=== PATIENT | female | born 2005 | race Caucasian/White ===

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

== ENCOUNTER 2025-03-28 14:07 | Emergency (ER) | payer OTHER, SELFPAY ==
--- NOTE | ~2025-03-28 | CT_ITS ---
EXAMINATION: CT abdomen pelvis w con DATE: 03/28/2025 17:21 INDICATION: generalized abdominal pain TECHNIQUE: Computed tomography (CT) of the abdomen and pelvis was performed with [address] Automated exposure control and iterative reconstruction technique were employed. The dose-length product was 1293.05 mGy-cm. COMPARISON: None. FINDINGS: Lower thorax: Unremarkable Liver: Normal. Biliary/Gallbladder: Gallbladder is normal. No bile duct dilation. Pancreas: No mass or duct dilation. Spleen: Normal. Adrenals:No mass. Kidneys: No suspicious mass, obstructing stone, or hydronephrosis. GI tract: No small or large bowel dilation. Appendix not visualized, likely status post appendectomy. Mesentery/Peritoneum: No ascites, mass, or free air. Retroperitoneum: No mass. Pelvis: Partially distended normal appearing urinary bladder. Normal uterus. Polycystic bilateral ova gregoria. Soft Tissues: Soft tissues and body wall unremarkable. Bones: No acute osseous finding. IMPRESSION: No acute abdominopelvic process detected. Reviewed, dictated and finalized at location K.
[2025-03-28 14:11] VITALS: BP 142/80; PULSE 97; RESP 16; TEMP 36.5; O2SAT 100
--- OUTSIDE RECORDS SUMMARY | 2025-03-28 15:22 | XMS_ITS | Clinical Summary ---
Author Organization [facility] [employer] [facility] Address [address] [place] [address] Care Team Providers Care Power Crane Operator Name Role Phone June Valles MD Primary Care Provider [phone]- [phone] Source Comments [facility] [employer],non-owned Affiliates and Associated Physician Practices is amultiple site organization consisting of ambulatory clinics and hospital sitesin [place], [place], [place] and [place]. This disclosure is being madepursuant to the Care Everywhere program and may not contain all information available regarding this patient. Last updated 18.[facility] [facility] Allergies No known active allergies Medications * This document contains information received from the source organization and may not represent a complete record from that organization. * Be aware that medications may not be up to date on this document. Alwaysverify current medications with the patient. amphetamine-de xtroamphetamin e XR 24hr (ADDERALL XR) 30 MG capsule Take 30 mg by mouth every morning Active amphetamine-de xtroamphetamin e XR 24hr (ADDERALL XR) 10 MG capsule Take 10 mg by mouth daily at 12 PM Active acetaminophen (TYLENOL) 325 MG tablet Take 1 tablet by mouth every 4 hours as needed for Fever or Pain Maximum allowable Acetaminophen amount = 4 Grams (4000 mg) / 24 hours. 50 tablet 9 Active ibuprofen (MOTRIN) 200 MG tablet Take 1-2 tablets by mouth every 6 hours as needed for Pain 100 tablet 9 Active Active Problems Problem Noted Date Diagnosed Date Acute appendicitis 10/23/2018 Social History Tobacco Use Types Packs/Day Years Used Date Smoking Tobacco: Never Smokeless Tobacco: Never Alcohol Use Standard Drinks/Week Comments No 0 (1 standard drink = 0.6 oz pur e alcohol) Comments Unknown Sex and Gender Information Value Date Recorded Sex Assigned at Not on file Legal Sex Female 5:43 AM SPORTS MARKETING SPECIALIST Gender Identity Not on file Sexual Orientation Not on file Last Filed Vital Signs Vital Sign Reading Time Taken Comments Blood Pressure 124/77 10/23/2018 5:53 PM SPORTS MARKETING SPECIALIST Pulse 100 10/23/2018 5:53 PM SPORTS MARKETING SPECIALIST Temperature 36.2 C (97.2 F) 10/23/2018 5:53 PM SPORTS MARKETING SPECIALIST Respiratory Rate 16 10/23/2018 5:53 PM SPORTS MARKETING SPECIALIST Oxygen Saturation 100% 10/23/2018 5:53 PM SPORTS MARKETING SPECIALIST Inhaled Oxygen Concentration 100% 10/23/2018 3 :50 PM SPORTS MARKETING SPECIALIST Weight 58.2 kg (128 lb 4.9 oz) 12/03/2018 12:58 PM SPORTS MARKETING SPECIALIST Height 159.7 cm (5' 2.89) 10/23/2018 11:[address] Body Mass Index - - Plan of Treatment Health Maintenance Due Date Last Done Comments HIV SCREENING 2019 HPV VACCINE (1 - 3-dose series) 2019 CHLAMYDIA/GONORRHEA SCREENING 2020 MENINGOCOCCAL (Group B) VACC INE SHARED DECISION-MAKING (1 of 2 - Standard) 2020 HEPATITIS C SCREENING 08/18/2022 DTAP/TDAP/TD VACCINES (1 - Tdap) 2023 HEPATITIS B VACCINE (1 of 3 - 19+ 3-dose series) 2023 COVID-19 VACCINE (1 - 2023-2 5 season) 2024 DEPRESSION SCREENING 10/20/2024 INFLUENZA VACCINE (Season Ended) 2025 ZOSTER VACCINE (1 of 2) 2054 HIB VACCINE Aged Out No longer eligi ble based on patient's age to complete this topic MENINGOCOCCAL GROUPS A/C/Y/W VACCINE Aged Out No longer eligible b ased on patient's age to complete this topic PNEUMOCOCCAL VACCINE Aged Out No long er eligible based on patient's age to complete this topic Insurance [facility] Member Subscriber Plan / Payer (Ef fective for All Dates) Name:Susan Fuxena R Relation to Subscriber:Self Name:SUSAN FUXENA Payer ID:Not on file Group ID:Not on file Type:Medicaid [place] Address: [address] [id number] MEDICAID - OUT OF STATE Advance Directives * Full Code (Latest Code Status on File) Date Activated Date Inactivated Comments 10/23/2018 12:58 PM 10/23/2018 9:59 PM Care Teams Power Crane Operator Relationship Specialty Start Date End Date June Valles MD [address] [facility] [address] [place], [place] [id number] PCP - General Pediatrics 10/23/18
--- OUTSIDE RECORDS SUMMARY | 2025-03-28 15:52 | XMS_ITS | Clinical Summary ---
Author Organization [facility] Address [address] [place] [address] Care Team Providers Care Data Entry Manager Name Role Phone June Valles MD Primary Care Provider [phone]- [phone] Source Comments [facility],non-owned Affiliates and Associated Physician Practices is amultiple site organization consisting of ambulatory clinics and hospital sitesin [place], [place], [place] and [place]. This disclosure is being madepursuant to the Care Everywhere program and may not contain all information available regarding this patient. Last updated 18.[facility] Allergies No known active allergies Medications * [...] on file Legal Sex Female 5:43 AM CASEWORK SPECIALIST Gender Identity Not on file Sexual Orientation Not on file Last Filed Vital Signs Vital Sign Reading Time Taken Comments Blood Pressure 124/77 10/23/2018 5:53 PM CASEWORK SPECIALIST Pulse 100 10/23/2018 5:53 PM CASEWORK SPECIALIST Temperature 36.2 C (97.2 F) 10/23/2018 5:53 PM CASEWORK SPECIALIST Respiratory Rate 16 10/23/2018 5:53 PM CASEWORK SPECIALIST Oxygen Saturation 100% 10/23/2018 5:53 PM CASEWORK SPECIALIST Inhaled Oxygen Concentration 100% 10/23/2018 3 :50 PM CASEWORK SPECIALIST Weight 58.2 kg (128 lb 4.9 oz) 12/03/2018 12:58 PM CASEWORK SPECIALIST Height 159.7 cm (5' 2.89) 10/23/2018 [...] patient's age to complete this topic Insurance [facility] Member Subscriber Plan / Payer (Ef fective for All Dates) Name:Susan Fuxena R Relation to Subscriber:Self Name:SUSAN FUXENA Payer ID:Not on file Group ID:Not on file Type:Medicaid [place] Address: [address] [id number] MEDICAID - OUT OF STATE Advance Directives * Full Code (Latest Code Status on File) Date Activated Date Inactivated Comments 10/23/2018 12:58 PM 10/23/2018 9:59 PM Care Teams Data Entry Manager Relationship Specialty Start Date End Date June Valles MD [address] [facility] [address] [place], [place] [id number] PCP - General Pediatrics 10/23/18
[2025-03-28] MEDS: SODIUM CHLORIDE 0.9% IV 1,000 ML 999 ML IV CONT (15:58)
[2025-03-28] MEDS: ONDANSETRON INJ 4 MG/2 ML VIAL IV PUSH (15:58)
--- NOTE | 2025-03-28 16:04 | ED_ITS ---
HPI - Abdominal Pain General Chief Complaint: Abdominal Pain Stated Complaint: abd pain for 3 months Time Seen by Provider: 03/28/25 14:33 History of Present Illness HPI narrative: Patient is a 19-year-old female who presents the ER with abdominal pain. She reports she drank alcohol last night and is hung over, but has been having generalized abdominal pain for the past 3 months. Patient reports the pain is worse this morning. She reports she was vomiting this morning with the last time being around 1:30 p.m.. Patient reports she has had random stabbing throughout her abdomen. She reports her last bowel movement was earlier today around 1:00 p.m. it was normal for her. She denies any medical history besides an appendectomy. Patient reports her last menstrual period was January 08, 2025. She denies any urinary symptoms, recent fevers, illicit drug use. Related Data Allergies Allergy/AdvReac Type Severity Reaction Status Date / Time No Known Allergies Allergy Mild Verified 05/27/23 21:44 Review of Systems 2 Review of Systems: All systems reviewed & are unremarkable except as noted in HPI and below Exam 2 Narrative: GENERAL: Well appearing, obese, non-toxic, in no acute distress. HEAD: Normocephalic, atraumatic. NECK: Supple. No adenopathy, no masses. RESPIRATORY: Airway patent, respirations nonlabored. Clear to auscultation bilaterally, no rales, rhonchi, wheezing. CARDIOVASCULAR: Regular rate and rhythm without murmurs, rubs, or gallops. Peripheral pulses 2+ and equal bilaterally. ABDOMINAL: Soft, tender all four quadrants with palpation, nondistended, no hepatosplenomegaly. Normoactive BS. MUSCULOSKELETAL: Moves all extremities. Strength/ROM intact without gross deformities. SKIN: Warm, dry, normal color. No rashes. NEURO: A&O X3. Speech clear. Cranial nerves II-XII intact. No ataxic movements. PSYCHIATRIC: Appropriate mood and affect. Normal interaction. Course Vital Signs Vital signs: Vital Signs Temperature 36.5 C 03/28/25 14:11 Pulse Rate 97 03/28/25 14:11 Respiratory Rate 16 03/28/25 14:11 Blood Pressure 142/80 H 03/28/25 14:11 Pulse Oximetry 100 03/28/25 14:11 Oxygen Delivery Room Air 03/28/25 14:11 Temperature 36.5 C 03/28/25 14:11 Pulse Rate 97 03/28/25 14:11 Respiratory Rate 16 03/28/25 14:11 Blood Pressure 142/80 H 03/28/25 14:11 Pulse Oximetry 100 03/28/25 14:11 Oxygen Delivery Room Air 03/28/25 14:11 MDM - Abdominal Pain MDM Narrative Medical decision making narrative: Patient is a 19-year-old female who presents the ER with abdominal pain. She reports she drank alcohol last night and is hung over, but has been having generalized abdominal pain for the past 3 months. Patient reports the pain is worse this morning. She reports she was vomiting this morning with the last time being around 1:30 p.m.. Patient reports she has had random stabbing throughout her abdomen. She reports her last bowel movement was earlier today around 1:00 p.m. it was normal for her. She denies any medical history besides an appendectomy. Patient reports her last menstrual period was January 08, 2025. She denies any urinary symptoms, recent fevers, illicit drug use. Labs Ordered: CBC, CMP, lipase, UA, beta hCG Imaging Ordered: CT abdomen pelvis Medications Ordered: 1 L normal saline IV bolus, Toradol IV, Zofran IV Results: Pt's CT scan indicates Lower thorax: Unremarkable Liver: Normal. Biliary/Gallbladder: Gallbladder is normal. No bile duct dilation. Pancreas: No mass or duct dilation. Spleen: Normal. Adrenals:No mass. Kidneys: No suspicious mass, obstructing stone, or hydronephrosis. GI tract: No small or large bowel dilation. Appendix not visualized, likely status post appendectomy. Mesentery/Peritoneum: No ascites, mass, or free air. Retroperitoneum: No mass. Pelvis: Partially distended normal appearing urinary bladder. Normal uterus. Polycystic bilateral ovaries. Soft Tissues: Soft tissues and body wall unremarkable. Bones: No acute osseous finding. Diagnosis: Abdominal pain, mild dehydration Patient Education/Shared MDM: Results of lab work and imaging shared with patient. She endorses improvement of symptoms following medication administration. Patient strongly advised to maintain hydration status upon discharge and follow-up with her PCP as soon as possible. She will be discharged home with a prescription for Bentyl and Zofran. Strict return precautions provided. Patient verbalized understanding and is in agreement with plan. Vital signs stable at time of discharge. All questions answered. Differential Diagnosis Differential diagnosis: Likely abdominal pain, constipation, gastroenteritis, small bowel obstruction and other (UTI, dehydration) Lab Data Attestation: I reviewed the patient's lab results. 03/28/25 16:00 03/28/25 16:00 Labs: Lab Results 03/28/25 03/28/25 Range/Units 16:00 16:04 WBC 9.7 (4.5-10.0) K/mm3 RBC 4.70 (4.2-5.4) M/mm3 Hgb 13.3 (12.0-15.0) g/dL Hct 42.5 (37.0-47.0) % MCV 90.4 (80-100) fl MCH 28.3 (26-34) pg MCHC 31.3 L (32-36) g/dl RDW 13.0 (11.5-14.5) % Plt Count 259 (150-375) k/mm3 MPV 9.0 (7.4-10.4) fl Immature Gran % (Auto) 0.3 (0-0.5) % Neut % (Auto) 66.0 (45.5-73.1) % Lymph % (Auto) 24.8 (18.3-44.2) % [place] % (Auto) 8.1 (2.6-8.5) % Eos % (Auto) 0.4 (0-4.4) % Baso % (Auto) 0.4 (0.2-1.2) % Lymph # (Auto) 2.39 (0.9-3.2) K/mm3 [place] # (Auto) 0.8 H (0.1-0.6) K/mm3 Eos # (Auto) 0.0 (0-0.3) K/mm3 Baso # (Auto) 0.0 (0.0-0.1) K/mm3 Abs Immat Gran (auto) 0.03 (0.00-0.031) K/mm3 Absolute Neuts (auto) 6.4 (1.3-6.7) K/mm3 Absolute Nucleated RBC 0.000 (0.0-0.012) K/mm3 Nucleated RBC % 0.0 (0.0-0.2) % Sodium 138 (137-145) mmol/L Potassium 3.9 (3.4-5.0) mmol/L Chloride 105 (98-107) mmol/L Carbon Dioxide 24 (22-30) mmol/L Anion Gap 9 (4-12) mmol/L BUN 12 (7-17) mg/dL Creatinine 0.65 L (0.7-1.0) mg/dL Estim Creat Clear Calc 141 ml/min Estimated GFR > 60 (59 - ) Glucose 95 (65-110) mg/dL Calcium 9.6 (8.4-10.2) mg/dL Total Bilirubin 0.5 (0.2-1.3) mg/dL AST 29 (14-36) U/L ALT 26 (6-35) U/L Alkaline Phosphatase 115 (38-126) U/L Total Protein 7.7 (6.3-8.2) g/dL Albumin 4.5 (3.5-5.1) g/dL Lipase 31 (23-300) U/L Beta HCG, Quant < 2.39 mIU/ML Urine Color Yellow (Yellow) Urine Appearance Cloudy H (Clear) Urine pH 7.5 (5.0-9.0) Ur Specific [place] 1.026 (1.001-1.035) Urine Protein Trace (Negative) mg/dL Urine Glucose (UA) Negative (Negative) mg/dL Urine Ketones Negative (Negative) mg/dL Ur Blood (Man) Negative (Negative) Urine Nitrate Negative (Negative) Urine Bilirubin Negative (Negative) Urine Urobilinogen 1.0 (<2.0) mg/dL Add Ur Microanalysis Reviewed Leukocyte Esterase Rfl 1+ H (Negative) MARK/UL Urine RBC 3-5 H (0-2) /hpf Urine WBC 0-5 (0-3) /hpf Ur Squamous Epith Cells Many H (Few) /hpf Urine Bacteria Rare /hpf Urine Casts 0-2 POC Urine HCG, Qual Negative (Negative) Imaging Data Attestation: I personally reviewed and interpreted this imaging study as follows: Radiologist's impression: ITS Impressions Abdomen/Pelvis CT 03/28/25 17:31 IMPRESSION: No acute abdominopelvic process detected. Discharge Plan Discharge Clinical Impression: Abdominal pain, Dehydration, mild Patient Disposition: Home Condition: Stable Instructions: Antibiotic Form, Abdominal Pain (ED) Additional Instructions: Please return to the ER with any worsening symptoms. Follow-up with primary care provider as soon as possible. Take all medications as prescribed. Patient Language: Belgian Prescriptions: New dicyclomine 20 mg tablet 20 mg PO BID Qty: 30 0RF ondansetron 4 mg tablet,disintegrating 4 mg PO Q8H PRN (Reason: Nausea And Vomiting) Qty: 20 0RF Follow-up/Referrals: Gerard,Kamini Abebe MD [Primary Care Provider] - Stand Alone Forms: Work/School Release IP Time of Disposition: 18:05
[2025-03-28 16:06] LABS: BEDSIDEPREGUCG Negative (Negative)
[2025-03-28 16:09] LABS: Basophils Percent Auto 0.4 % (0.2-1.2); Eosinophils Percent Auto 0.4 % (0-4.4); Hematocrit 42.5 % (37.0-47.0); Hemoglobin 13.3 g/dL (12.0-15.0); Immature Granulocyte Absolute 0.03 K/mm3 (0.00-0.031); Immature Granulocyte Percent A 0.3 % (0-0.5); Lymphocytes Absolute Auto 2.39 K/mm3 (0.9-3.2); Lymphocytes Percent Auto 24.8 % (18.3-44.2); Mean Corpuscular HGB Conc 31.3 g/dl (32-36); Mean Corpuscular Hemoglobin 28.3 pg (26-34); Mean Corpuscular Volume 90.4 fl (80-100); Monocytes Absolute Auto 0.8 K/mm3 (0.1-0.6); Monocytes Percent Auto 8.1 % (2.6-8.5); Neutrophils Absolute Auto 6.4 K/mm3 (1.3-6.7); Platelet Count Result 259 k/mm3 (150-375); White Blood Count 9.7 K/mm3 (4.5-10.0)
[2025-03-28 16:20] LABS: Alanine Aminotransferase 26 U/L (6-35); Albumin Level 4.5 g/dL (3.5-5.1); Alkaline Phosphatase 115 U/L (38-126); Anion Gap 9 mmol/L (4-12); Aspartate Amino Transferase 29 U/L (14-36); Bilirubin,Total 0.5 mg/dL (0.2-1.3); Blood Urea Nitrogen 12 mg/dL (7-17); Calcium 9.6 mg/dL (8.4-10.2); Carbon Dioxide 24 mmol/L (22-30); Chloride 105 mmol/L (98-107); Estimated CRCL calculation 141 ml/min; Estimated Glomerular Filt Rate > 60; Glucose 95 mg/dL (65-110); Lipase 31 U/L (23-300); Potassium 3.9 mmol/L (3.4-5.0); Sodium 138 mmol/L (137-145); Total Protein 7.7 g/dL (6.3-8.2)
[2025-03-28 16:28] LABS: Add Urine Microscopic? YES; Appearance Urine Cloudy (Clear); Bacteria Urine Rare /hpf; Bilirubin Urine Negative (Negative); Blood Urine Negative (Negative); Color Urine Yellow (Yellow); Glucose Urine UA Negative (Negative); Ketones Urine Negative (Negative); Leukocyte Esterase Ur 1+ LEU/UL (Negative); Need Manual Microscopic Reviewed; Nitrate Urine Negative (Negative); Non Pathogenic Casts 0-2; Protein Urine Trace mg/dL (Negative); Specific Grav Ur 1.026 (1.001-1.035); Squamous Epithelial Cell Urine Many /hpf (Few); WBC Urine 0-5 /hpf (0-3); pH Urine 7.5 (5.0-9.0)
[2025-03-28 16:36] LABS: Beta HCG Quantitative < 2.39 mIU/ML
--- NOTE | 2025-03-28 17:58 | PC.NURSE ---
TARGETEER Albina at bedside updating pt.
[2025-03-28] MEDS: KETOROLAC 15 MG/ML VIAL (*BKC) IV PUSH (18:02)
[2025-03-28 18:04] VITALS: BP 148/97; PULSE 99; RESP 14; O2SAT 100
== END 2025-03-28 18:21 | disposition home or self-care (01) ==
PROVIDERS: Emergency Provider Registered Nurse; PCP Obstetrics & Gynecology
DX: R10.84 Generalized abdominal pain (principal); E86.0 Dehydration
CPT/HCPCS: 36415; 74177; 80053; 81001; 81025; 83690; 84702; 85025; 96361; 96374; 96375; 99284; J1885; J2405; J7030; Q9967

== ENCOUNTER 2025-05-11 15:32 | Emergency (ER) | payer OTHER, SELFPAY ==
--- NOTE | ~2025-05-11 | XR_ITS ---
EXAMINATION: XR chest 1V portable DATE: 05/11/2025 22:30 INDICATION: Central chest pain TECHNIQUE: frontal view of the chest was obtained. COMPARISON: None FINDINGS: The lungs are clear with no focal airspace opacities, pulmonary edema, pleural effusion or pneumothor ax. The cardiomediastinal silhouette is normal. Visualized bones and soft tissues are unremarkable. IMPRESSION: 1. No acute cardiopulmonary disease. Reviewed, dictated and finalized at location A.
--- NOTE | ~2025-05-11 | US_ITS ---
EXAMINATION: US OB <=14 wk fetus w TV DATE: 05/11/2025 17:45 INDICATION: Vaginal bleeding during first trimester TECHNIQUE: Real-time pelvic ultrasound utilizing both a transvaginal and transabdominal probe was pe rformed. The interpreting radiologist was not present for the study. COMPARISON: None. FINDINGS: The uterus measures 7.3 x 4.3 x 4.2 cm. Endometrial complex measures approximately 10 mm in thickness . No evident intrauterine gestational sac. The right ovary measures 3.5 x 2.7 x 2.4 cm. 1.6 cm anechoic cyst/follicle at the periphery of the ri ght ovary. The left ovary measures 2.5 x 1.8 x 2.0 cm. Vascular flow identified with arterial wavefor ms in both ovaries on color Doppler. There is small amount of anechoic free fluid nabothian left and right adnexa. No other abnormal adnexal masses identified. IMPRESSION: 1. No evident intrauterine gestational sac for which differential would include early , fail ed or ectopic . Small amount of anechoic free fluid at the left and right adnexa b ut with no abnormal adnexal masses identified to elevate suspicion for ectopic . Recommend f ollow-up with serial beta-hCG levels with repeat ultrasound imaging as clinically indicated. Reviewed, dictated and finalized at location A. IMPRESSION: 1. No evident intrauterine gestational sac for which differential would include early , failed or ectopic . Small amount of anecho ic free fluid at the left and right adnexa but with no abnormal adnexal masses identified to elevate suspicion for ectopic . Recommend follow-up with serial beta-hCG levels with repeat ultrasound imaging as clinically indicated.
[2025-05-11 15:33] VITALS: BP 136/66; PULSE 98; RESP 16; TEMP 36.6; O2SAT 100
--- OUTSIDE RECORDS SUMMARY | 2025-05-11 15:34 | XMS_ITS | Clinical Summary ---
Author Organization [facility] [employer] Address [address] [place] [address] Care Team Providers Care Toy Maker Name Role Phone June Valles MD Primary Care Provider [phone]- [phone] Source Comments [facility],non-owned Affiliates and Associated Physician Practices is amultiple site organization consisting of ambulatory clinics and hospital sitesin [place], [place], [place] and [place]. This disclosure is being madepursuant to the Care Everywhere program and may not contain all information available regarding this patient. Last updated 18.[facility] Allergies No known active allergies Medications * [...] on file Legal Sex Female 5:43 AM COUNTRY MANAGER Gender Identity Not on file Sexual Orientation Not on file Last Filed Vital Signs Vital Sign Reading Time Taken Comments Blood Pressure 124/77 10/23/2018 5:53 PM COUNTRY MANAGER Pulse 100 10/23/2018 5:53 PM COUNTRY MANAGER Temperature 36.2 C (97.2 F) 10/23/2018 5:53 PM COUNTRY MANAGER Respiratory Rate 16 10/23/2018 5:53 PM COUNTRY MANAGER Oxygen Saturation 100% 10/23/2018 5:53 PM COUNTRY MANAGER Inhaled Oxygen Concentration 100% 10/23/2018 3 :50 PM COUNTRY MANAGER Weight 58.2 kg (128 lb 4.9 oz) 12/03/2018 12:58 PM COUNTRY MANAGER Height 159.7 cm (5' 2.89) 10/23/2018 11:10 [...] season) 2024 DEPRESSION SCREENING 10/20/2024 INFLUENZA VACCINE (#1) 2025 ZOSTER VACCINE (1 of 2) 2054 HIB VACCINE Aged Out No longer eligi ble based on patient's age to complete this topic MENINGOCOCCAL GROUPS A/C/Y/W VACCINE Aged Out No longer eligible b ased on patient's age to complete this topic PNEUMOCOCCAL VACCINE Aged Out No long er eligible based on patient's age to complete this topic Insurance [facility] Member Subscriber Plan / Payer (Ef fective for All Dates) Name:Susan Fuxena R Relation to Subscriber:Self Name:SUSAN FUXENA Payer ID:Not on file Group ID:Not on file Type:Medicaid [place] Address: [address] [id number] MEDICAID - OUT OF STATE Advance Directives * Full Code (Latest Code Status on File) Date Activated Date Inactivated Comments 10/23/2018 12:58 PM 10/23/2018 9:59 PM Care Teams Toy Maker Relationship Specialty Start Date End Date June Valles MD [address] [facility] [address] [place], [place] [id number] PCP - General Pediatrics 10/23/18
--- NOTE | 2025-05-11 15:36 | ECG_ITS ---
Test Date: 2025-05-11 15:40:48 Measurements Intervals [place] Rate: 92 P: 0 SD: 130 QRS: 12 QRSD: 81 T: 5 QT: 332 QTc: 412 Interpretive Statements SINUS RHYTHM NONSPECIFIC T-WAVE ABNORMALITY ABNORMAL ECG No previous ECG available for comparison Electronically Signed On 05-11-2025 16:48:24 CDT by Anton Heck M.D.
[2025-05-11 17:03] LABS: Hematocrit 39.5 % (37.0-47.0); Hemoglobin 12.7 g/dL (12.0-15.0); Immature Granulocyte Percent A 0.6 % (0-0.5); Lymphocytes Absolute Auto 1.71 K/mm3 (0.9-3.2); Mean Corpuscular HGB Conc 32.2 g/dl (32-36); Mean Corpuscular Hemoglobin 28.5 pg (26-34); Mean Corpuscular Volume 88.6 fl (80-100); Nucleated Red Blood Cells Absolute Auto 0.000 K/mm3 (0.0-0.012); Nucleated Red Blood Cells Perc 0.0 % (0.0-0.2); Platelet Count Result 243 k/mm3 (150-375); Red Blood Count 4.46 M/mm3 (4.2-5.4); White Blood Count 8.5 K/mm3 (4.5-10.0)
[2025-05-11 17:33] LABS: Alanine Aminotransferase 31 U/L (6-35); Albumin Level 4.1 g/dL (3.5-5.1); Alkaline Phosphatase 82 U/L (38-126); Anion Gap 7 mmol/L (4-12); Aspartate Amino Transferase 29 U/L (14-36); Bilirubin,Total 0.4 mg/dL (0.2-1.3); Blood Urea Nitrogen 7 mg/dL (7-17); Calcium 9.5 mg/dL (8.4-10.2); Carbon Dioxide 24 mmol/L (22-30); Chloride 105 mmol/L (98-107); Estimated Glomerular Filt Rate > 60; Glucose 110 mg/dL (65-110); Potassium 4.1 mmol/L (3.4-5.0); Sodium 136 mmol/L (137-145); Total Protein 7.2 g/dL (6.3-8.2)
[2025-05-11 17:45] LABS: Beta HCG Quantitative 1240.80 mIU/ML
[2025-05-11 20:01] VITALS: BP 119/79; PULSE 85; RESP 14; O2SAT 98
[2025-05-11 20:19] LABS: Add Urine Microscopic? YES; Appearance Urine Cloudy (Clear); Glucose Urine UA Negative (Negative); Leukocyte Esterase Ur 1+ LEU/UL (Negative); Need Manual Microscopic Reviewed; Nitrate Urine Negative (Negative); Non Pathogenic Casts 0-2; Specific Grav Ur 1.023 (1.001-1.035)
--- NOTE | 2025-05-11 22:15 | ED_ITS ---
HPI - Abdominal Pain General Chief Complaint: Abdominal Pain Stated Complaint: abd pain, 5 weeks Time Seen by Provider: 05/11/25 21:51 History of Present Illness HPI narrative: 19-year-old female who is reportedly 5 weeks , A1, LMP 04/10/2025 presents to the emergency department for abdominal pain in . Patient states 5 days ago she had an at home positive test. [facility] and was advised to come [facility] that she has been having lower abdominal pain and cramping. She states she has intermittent lower abdominal cramping for the past couple of days. She denies any aggravating or alleviating factors, vaginal bleeding, dysuria or hematuria. She is endorsing a clear and ?fishy? vaginal discharge and is expressing desire for STI testing. She also is endorsing intermittent chest pain for the past few days. She states she is uncertain if the pain is breast pain from her or acid reflux. She cannot identify any aggravating or alleviating factors. She denies cough, shortness of breath, hemoptysis, history of VTE, recent surgeries or hospitalizations, recent long travel. She is not established with an valve inserter. Related Data Allergies Allergy/AdvReac Type Severity Reaction Status Date / Time No Known Allergies Allergy Mild Verified 05/27/23 21:44 Review of Systems 2 Review of Systems: All systems reviewed & are unremarkable except as noted in HPI and below Exam 2 Narrative: GENERAL: Well-appearing, well-nourished, and in no acute distress. HEAD: Normocephalic, atraumatic. EYES: EOMI. ENT: Nares clear, no rhinorrhea or epistaxis. Mucous membranes moist. NECK: Supple. CHEST: Clear to auscultation. No respiratory distress. HEART: Regular rate and rhythm. No murmur heard. Normal peripheral pulses. ABDOMEN: Soft, nontender, nondistended, normal active bowel sounds. No rebound, guarding or rigidity. No CVA tenderness. : Chaperoned by CINDY Milian: Normal external genitalia, physiologic vaginal discharge, closed cervical os, no bleeding, no adnexal masses or tenderness, no CMT EXTREMITIES: Normal range of motion. No edema. SKIN: Warm, dry, no rash. NEURO: No focal deficits. Alert and oriented x3 Course Vital Signs Vital signs: Vital Signs Temperature 97.9 F 05/11/25 15:33 Pulse Rate 98 05/11/25 15:33 Respiratory Rate 16 05/11/25 15:33 Blood Pressure 136/66 05/11/25 15:33 Pulse Oximetry 100 05/11/25 15:33 Oxygen Delivery Room Air 05/11/25 15:33 Temperature 97.9 F 05/11/25 15:33 Pulse Rate 85 05/11/25 20:01 Respiratory Rate 14 05/11/25 20:01 Blood Pressure 119/79 05/11/25 20:01 Pulse Oximetry 98 05/11/25 20:01 Oxygen Delivery Room Air 05/11/25 15:33 MDM - Abdominal Pain MDM Narrative Medical decision making narrative: 19-year-old female who is A1, currently 5 weeks presents to the emergency department for intermittent abdominal cramping and intermittent chest pain and over the past 3 days. See HPI for further history. Triage vitals are stable. Patient is afebrile and nontoxic appearing and resting comfortably in exam bed. Exam is notable for the above. I did have discussion with the patient regarding risks and benefits of radiation in including obtaining chest x-ray for reported chest pain. Patient would like to proceed with chest x-ray and understands the risks. CBC without leukocytosis or anemia. Chemistries are unremarkable. Beta hCG is 1240.8. Urinalysis with 1+ leuk esterase, 1+ bacteria, many squamous cells and trace ketones, no white blood cells. GC, chlamydia, Trichomonas and BV tests are pending. US OB <14 weeks IMPRESSION: 1. No evident intrauterine gestational sac for which differential would include early , failed or ectopic . Small amount of anechoic free fluid at the left and right adnexa but with no abnormal adnexal masses identified to elevate suspicion for ectopic . Recommend follow-up with serial beta-hCG levels with repeat ultrasound imaging as clinically indicated. Patient's EKG shows normal sinus rhythm with a rate of 92 bpm, normal QRS duration, normal QTC, nonspecific T-wave abnormality, no ST elevations or depressions. Troponin is undetectable. D-dimer within normal limits, wells score is low risk. Lipase is within normal limits. Chest pain is atypical in nature. Patient updated on results. On re-evaluation she remains resting comfortably in exam bed, smiling and conversational. Abdomen remains soft and nontender. She is requesting empiric treatment for STIs. I discussed today's workup and findings with OBGYN on-call, Dr. Varner, who agrees to IM Rocephin, azithromycin and Flagyl for STI treatment, Keflex for asymptomatic bacteriuria in . Advises pt safe for d/c home with repeat hCG on Friday and would like the patient to call his office to schedule appointment for Friday afternoon. This was relayed to the patient. She was given strict ED return precautions. She is agreeable with the plan verbalized understanding. Discharged in stable condition Lab Data 05/11/25 16:56 05/11/25 16:56 Labs: Lab Results 05/11/25 05/11/25 05/11/25 Range/Units 16:56 19:57 22:53 WBC 8.5 (4.5-10.0) K/mm3 RBC 4.46 (4.2-5.4) M/mm3 Hgb 12.7 (12.0-15.0) g/dL Hct 39.5 (37.0-47.0) % MCV 88.6 (80-100) fl MCH 28.5 (26-34) pg MCHC 32.2 (32-36) g/dl RDW 13.1 (11.5-14.5) % Plt Count 243 (150-375) k/mm3 MPV 8.7 (7.4-10.4) fl Immature Gran % (Auto) 0.6 H (0-0.5) % Neut % (Auto) 69.9 (45.5-73.1) % Lymph % (Auto) 20.2 (18.3-44.2) % Jennings % (Auto) 7.4 (2.6-8.5) % Eos % (Auto) 1.5 (0-4.4) % Baso % (Auto) 0.4 (0.2-1.2) % Lymph # (Auto) 1.71 (0.9-3.2) K/mm3 Jennings # (Auto) 0.6 (0.1-0.6) K/mm3 Eos # (Auto) 0.1 (0-0.3) K/mm3 Baso # (Auto) 0.0 (0.0-0.1) K/mm3 Abs Immat Gran (auto) 0.05 H (0.00-0.031) K/mm3 Absolute Neuts (auto) 5.9 (1.3-6.7) K/mm3 Absolute Nucleated RBC 0.000 (0.0-0.012) K/mm3 Nucleated RBC % 0.0 (0.0-0.2) % PT 13.4 (11.1-14.7) Seconds INR 1.0 APTT 24.1 (22.3-36.8) Seconds D-Dimer 0.27 (<0.48) ug/mL Sodium 136 L (137-145) mmol/L Potassium 4.1 (3.4-5.0) mmol/L Chloride 105 (98-107) mmol/L Carbon Dioxide 24 (22-30) mmol/L Anion Gap 7 (4-12) mmol/L BUN 7 D (7-17) mg/dL Creatinine 0.66 L (0.7-1.0) mg/dL Estim Creat Clear Calc Not Reportable Estimated GFR > 60 (59 - ) Glucose 110 (65-110) mg/dL Calcium 9.5 (8.4-10.2) mg/dL Total Bilirubin 0.4 (0.2-1.3) mg/dL AST 29 (14-36) U/L ALT 31 (6-35) U/L Alkaline Phosphatase 82 (38-126) U/L Troponin I < 0.012 (0.000-0.034) ng/mL NT-Pro-B Natriuret Pep < 20 (19.9-100) pg/mL Total Protein 7.2 (6.3-8.2) g/dL Albumin 4.1 (3.5-5.1) g/dL Lipase 57 (23-300) U/L Beta HCG, Quant 1240.80 mIU/ML Urine Color Yellow (Yellow) Urine Appearance Cloudy H (Clear) Urine pH 5.5 (5.0-9.0) Ur Specific Agness 1.023 (1.001-1.035) Urine Protein Negative (Negative) mg/dL Urine Glucose (UA) Negative (Negative) mg/dL Urine Ketones Trace H (Negative) mg/dL Ur Blood (Man) Negative (Negative) Urine Nitrate Negative (Negative) Urine Bilirubin Negative (Negative) Urine Urobilinogen 0.2 (<2.0) mg/dL Add Ur Microanalysis Reviewed Leukocyte Esterase Rfl 1+ H (Negative) MARK/UL Urine RBC 0-2 (0-2) /hpf Urine WBC 0-5 (0-3) /hpf Ur Squamous Epith Cells Many H (Few) /hpf Urine Bacteria 1+ H /hpf Urine Casts 0-2 Urine Mucus Present /lpf C. trachomatis (PCR) Not detected (NOT DETECTE) N. gonorrhoeae (PCR) Not detected (NOT DETECTE) T. vaginalis (PCR) Not detected (NOT DETECTE) Bact Vaginosis Panel 05/11/25 Range/Units 22:58 WBC (4.5-10.0) K/mm3 RBC (4.2-5.4) M/mm3 Hgb (12.0-15.0) g/dL Hct (37.0-47.0) % MCV (80-100) fl MCH (26-34) pg MCHC (32-36) g/dl RDW (11.5-14.5) % Plt Count (150-375) k/mm3 MPV (7.4-10.4) fl Immature Gran % (Auto) (0-0.5) % Neut % (Auto) (45.5-73.1) % Lymph % (Auto) (18.3-44.2) % Jennings % (Auto) (2.6-8.5) % Eos % (Auto) (0-4.4) % Baso % (Auto) (0.2-1.2) % Lymph # (Auto) (0.9-3.2) K/mm3 Jennings # (Auto) (0.1-0.6) K/mm3 Eos # (Auto) (0-0.3) K/mm3 Baso # (Auto) (0.0-0.1) K/mm3 Abs Immat Gran (auto) (0.00-0.031) K/mm3 Absolute Neuts (auto) (1.3-6.7) K/mm3 Absolute Nucleated RBC (0.0-0.012) K/mm3 Nucleated RBC % (0.0-0.2) % PT (11.1-14.7) Seconds INR APTT (22.3-36.8) Seconds D-Dimer (<0.48) ug/mL Sodium (137-145) mmol/L Potassium (3.4-5.0) mmol/L Chloride (98-107) mmol/L Carbon Dioxide (22-30) mmol/L Anion Gap (4-12) mmol/L BUN (7-17) mg/dL Creatinine (0.7-1.0) mg/dL Estim Creat Clear Calc Estimated GFR (59 - ) Glucose (65-110) mg/dL Calcium (8.4-10.2) mg/dL Total Bilirubin (0.2-1.3) mg/dL AST (14-36) U/L ALT (6-35) U/L Alkaline Phosphatase (38-126) U/L Troponin I (0.000-0.034) ng/mL NT-Pro-B Natriuret Pep (19.9-100) pg/mL Total Protein (6.3-8.2) g/dL Albumin (3.5-5.1) g/dL Lipase (23-300) U/L Beta HCG, Quant mIU/ML Urine Color (Yellow) Urine Appearance (Clear) Urine pH (5.0-9.0) Ur Specific Agness (1.001-1.035) Urine Protein (Negative) mg/dL Urine Glucose (UA) (Negative) mg/dL Urine Ketones (Negative) mg/dL Ur Blood (Man) (Negative) Urine Nitrate (Negative) Urine Bilirubin (Negative) Urine Urobilinogen (<2.0) mg/dL Add Ur Microanalysis Leukocyte Esterase Rfl (Negative) MARK/UL Urine RBC (0-2) /hpf Urine WBC (0-3) /hpf Ur Squamous Epith Cells (Few) /hpf Urine Bacteria /hpf Urine Casts Urine Mucus /lpf C. trachomatis (PCR) (NOT DETECTE) N. gonorrhoeae (PCR) (NOT DETECTE) T. vaginalis (PCR) (NOT DETECTE) Bact Vaginosis Panel Cancelled Imaging Data Radiologist's impression: ITS Impressions Obstetrics Ultrasound 05/11/25 17:49 IMPRESSION: 1. No evident intrauterine gestational sac for which differential would include early , failed or ectopic . Small amount of anechoic free fluid at the left and right adnexa but with no abnormal adnexal masses identified to elevate suspicion for ectopic . Recommend follow-up with serial beta-hCG levels with repeat ultrasound imaging as clinically indicated. Chest X-Ray 05/11/25 22:37 IMPRESSION: 1. No acute cardiopulmonary disease. Discharge Plan Discharge Clinical Impression: Abdominal pain affecting , Atypical chest pain, Asymptomatic bacteriuria during , Screening examination for STI Patient Disposition: Home Condition: Stable Instructions: Antibiotic Form, Chest Pain (DC), Abdominal Pain in (ED) Additional Instructions: Your evaluated in the emergency department for abdominal pain and chest pain and . Your beta hCG level is 1240.80. Please report to the [facility] lab Friday to have a repeat beta hCG level as we would expect this to increase if you have a viable . You are also requesting to be empirically treated for gonorrhea, chlamydia and Trichomonas. Additionally your found have some bacteria in your urine and are being treated for a possible UTI. Please take the antibiotics as directed. Make sure all partners are tested and treated appropriately prior to engaging sexual contact. Please call the [facility] office, Dr. Varner, and schedule an appointment for Friday afternoon for close follow-up. Return to the emergency department if you develop worsening abdominal pain, lightheadedness or loss of consciousness, worsening or changing chest pain or shortness of breath, fever, your unable to tolerate food or fluids, or other concerning symptoms. Patient Language: Solomon Islander Prescriptions: New metronidazole 500 mg tablet 500 mg PO Q12H Qty: 14 0RF acetaminophen 500 mg capsule 500 mg PO Q6H PRN (Reason: pain) Qty: 14 0RF metoclopramide HCl 10 mg tablet 10 mg PO Q6H PRN (Reason: nausea and vomiting) Qty: 14 0RF cephalexin 500 mg capsule 500 mg PO Q6H Qty: 28 0RF No Action dicyclomine 20 mg tablet 20 mg PO BID Qty: 30 0RF ondansetron 4 mg tablet,disintegrating 4 mg PO Q8H PRN (Reason: Nausea And Vomiting) Qty: 20 0RF dicyclomine 20 mg tablet 20 mg PO BID Qty: 30 0RF ondansetron 4 mg tablet,disintegrating 4 mg PO Q8H Qty: 30 0RF Other Ambulatory Orders: Beta HCG Quantitative (Routine) Timeframe: 20250513 Location: Determined by Patient Ordered By: Mis Aquino Follow-up/Referrals: David Varner MD [Physician] - Gerard,Kamini Abebe MD [Primary Care Provider] -
--- OUTSIDE RECORDS SUMMARY | 2025-05-11 22:27 | XMS_ITS | Clinical Summary ---
Author Organization [facility] Address [address] [place] [address] Care Team Providers Care Sales And Service Engineer Name Role Phone June Valles MD Primary Care Provider [phone] Source Comments [facility],non-owned Affiliates and Associated Physician Practices is amultiple site organization consisting of ambulatory clinics and hospital sitesin [place], [place], [place] and [place]. This disclosure is being madepursuant to the Care Everywhere program and may not contain all information available regarding this patient. Last updated 18.[facility] Allergies No known active allergies Medications * [...] on file Legal Sex Female 5:43 AM SOLUTIONS DELIVERY CONSULTANT Gender Identity Not on file Sexual Orientation Not on file Last Filed Vital Signs Vital Sign Reading Time Taken Comments Blood Pressure 124/77 10/23/2018 5:53 PM SOLUTIONS DELIVERY CONSULTANT Pulse 100 10/23/2018 5:53 PM SOLUTIONS DELIVERY CONSULTANT Temperature 36.2 C (97.2 F) 10/23/2018 5:53 PM SOLUTIONS DELIVERY CONSULTANT Respiratory Rate 16 10/23/2018 5:53 PM SOLUTIONS DELIVERY CONSULTANT Oxygen Saturation 100% 10/23/2018 5:53 PM SOLUTIONS DELIVERY CONSULTANT Inhaled Oxygen Concentration 100% 10/23/2018 3 :50 PM SOLUTIONS DELIVERY CONSULTANT Weight 58.2 kg (128 lb 4.9 oz) 12/03/2018 12:58 PM SOLUTIONS DELIVERY CONSULTANT Height 159.7 cm (5' 2.89) 10/23/2018 11:10 [...] patient's age to complete this topic Insurance [facility] Member Subscriber Plan / Payer (Ef fective for All Dates) Name:Susan Fuxena R Relation to Subscriber:Self Name:SUSAN FUXENA Payer ID:Not on file Group ID:Not on file Type:Medicaid [place] Address: [address] [id number] MEDICAID - OUT OF STATE Advance Directives * Full Code (Latest Code Status on File) Date Activated Date Inactivated Comments 10/23/2018 12:58 PM 10/23/2018 9:59 PM Care Teams Sales And Service Engineer Relationship Specialty Start Date End Date June Valles MD [address] [place], [place] [id number] PCP - General Pediatrics 10/23/18
[2025-05-11 22:57] LABS: Lipase 57 U/L (23-300)
[2025-05-11 23:05] LABS: NT Pro B Type Natriuretic Pept < 20 pg/mL (19.9-100); Troponin I < 0.012 ng/mL (0.000-0.034)
[2025-05-11 23:19] LABS: INR 1.0; Prothrombin Time 13.4 Seconds (11.1-14.7)
[2025-05-11 23:20] LABS: Partial Thromboplastin Time 24.1 Seconds (22.3-36.8)
[2025-05-11 23:57] LABS: Trichomonas Vag PCR NOT DETECTED (NOT DETECTE)
[2025-05-12] MEDS: AZITHROMYCIN 500 MG TABLET 1000 MG PO (00:18)
[2025-05-12] MEDS: cefTRIAXone 1 GM VIAL 0.5 GM IM (00:18)
[2025-05-12] MEDS: LIDOCAINE 1% LOCAL INJ 10 ML VIAL (00:19)
== END 2025-05-12 00:21 | disposition home or self-care (01) ==
PROVIDERS: Registered Nurse; Emergency Provider Physician Assistant; PCP Obstetrics & Gynecology
DX: O26.891 Other specified pregnancy related conditions, first trimester (principal); R10.9 Unspecified abdominal pain; R82.71 Bacteriuria; R07.89 Other chest pain; Z11.3 Encounter for screening for infections with a predominantly sexual mode of transmission; R94.31 Abnormal electrocardiogram [ECG] [EKG]; Z3A.01 Less than 8 weeks gestation of pregnancy
CPT/HCPCS: 36415; 71045; 76801; 76817; 80053; 81001; 83690; 83880; 84484; 84702; 85025; 85380; 85610; 85730; 87491; 87591; 87661; 87798; 93005; 96372; 99284; A9270; J0696; J2003

== ENCOUNTER 2025-07-28 14:41 | Emergency (ER) | payer OTHER, SELFPAY ==
--- NOTE | ~2025-07-28 | US_ITS ---
EXAMINATION: US abdomen limited DATE: 07/28/2025 18:27 INDICATION: Abdominal cramping and right upper quadrant abdominal pain TECHNIQUE: Multiple grayscale and Doppler ultrasound images of the abdomen were obtained. COMPARISON: CT dated 03/20/2025 FINDINGS: The pancreatic head and body are normal in appearance. The pancreatic tail is not visualized. Liver has normal echogenicity and contour, with a smooth surface. No liver lesion identified. No intrahepatic biliary duct dilation suspected. Portal venous flow was seen in the hepatopetal, normal direction and has normal Doppler waveform. The visualized proximal inferior vena cava is normal. Gallbladder is decompressed which limits evaluation. No evident cholelithiasis. Common bile duct measures to have 3 mm in maximal diameter which is normal. Sonographic Moody sign was reported as negative by the sono grapher.Visualized portion of the right kidney demonstrates normal contour and echogenicity with no hydronephrosis. IMPRESSION: 1. Normal right upper quadrant ultrasound with decompressed gallbladder. Reviewed, dictated and finalized at location A.
--- NOTE | ~2025-07-28 | US_ITS ---
EXAMINATION: US OB limited DATE: 07/28/2025 18:27 INDICATION: Abdominal cramping at the 15th week of TECHNIQUE: Real-time ultrasound of the pelvis was performed. The interpreting radiologist was not present for the study. COMPARISON: None. FINDINGS: There is a single living fetus in vertex presentation. The placenta is posterior with caudal margin 3.7 cm from the internal cervical os. heart rate is 150 beats per minute (bpm). The amniotic fluid volume is subjectively normal. IMPRESSION: 1. Single living fetus in vertex presentation with heart rate of 150 bpm. 2. Normal posterior placenta with caudal margin 3.7 cm from the internal cervical os. Reviewed, dictated and finalized at location A. IMPRESSION: 1. Single living fetus in vertex presentation with heart rate of 150 bpm . 2. Normal posterior placenta with caudal margin 3.7 cm from the internal cervic al os.
[2025-07-28 14:54] VITALS: BP 136/78; PULSE 99; RESP 18; TEMP 36.7; O2SAT 99
--- NOTE | 2025-07-28 17:38 | ED.PREGNANCY ---
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 She reports she is approximately 15 weeks . Patient endorses some abnormal vaginal discharge and acute back pain. Patient reports the pain has been present for approximately 3 days. She reports she has had stabbing pain throughout her lower abdomen. She reports her last bowel movement was earlier today and it was normal for her. She denies any medical history besides an appendectomy. Patient reports her last menstrual period was in March 2025 She denies any urinary symptoms, recent fevers, or illicit drug use. Related Data Allergies Allergy/AdvReac Type Severity Reaction Status Date / Time No Known Allergies Allergy Mild Verified 07/28/25 14:42 Review of Systems Review of Systems: All systems reviewed & are unremarkable except as noted in HPI and below Exam Narrative: GENERAL: Well appearing, obese, non-toxic, in no acute distress. HEAD: Normocephalic, atraumatic. NECK: Supple. No adenopathy, no masses. RESPIRATORY: Airway patent, respirations nonlabored. Clear to auscultation bilaterally, no rales, rhonchi, wheezing. CARDIOVASCULAR: Regular rate and rhythm without murmurs, rubs, or gallops. Peripheral pulses 2+ and equal bilaterally. ABDOMINAL: Soft, bilateral lower quadrant tenderness, + RUQ pain with palpation, nondistended, no hepatosplenomegaly. Normoactive BS. MUSCULOSKELETAL: Moves all extremities. Strength/ROM intact without gross deformities. SKIN: Warm, dry, normal color. No rashes. NEURO: A&O X3. Speech clear. Cranial nerves II-XII intact. No ataxic movements. PSYCHIATRIC: Appropriate mood and affect. Normal interaction. Course Vital Signs Vital signs: Vital Signs Temperature 36.7 C 07/28/25 14:54 Pulse Rate 99 07/28/25 14:54 Respiratory Rate 18 07/28/25 14:54 Blood Pressure 136/78 07/28/25 14:54 Pulse Oximetry 99 07/28/25 14:54 Oxygen Delivery Room Air 07/28/25 14:54 Temperature 36.7 C 07/28/25 14:54 Pulse Rate 93 07/28/25 18:54 Respiratory Rate 18 07/28/25 18:54 Blood Pressure 102/66 07/28/25 18:54 Pulse Oximetry 100 07/28/25 18:54 Oxygen Delivery Room Air 07/28/25 14:54 MDM - OB/Uterine Contractions MDM Narrative Medical decision making narrative: Patient is a 19-year-old female who presents to the ER with lower and RUQ abdominal pain. She reports she is approximately 15 weeks . Patient endorses some abnormal malodorous vaginal discharge and acute back pain. Patient reports the pain has been present for approximately 3 days. She reports she has had stabbing pain throughout her lower abdomen. She reports her last bowel movement was earlier today and it was normal for her. She denies any medical history besides an appendectomy. Patient reports her last menstrual period was in March 2025 She denies any urinary symptoms, recent fevers, or illicit drug use. Labs Ordered: CBC, CMP, UA, beta hCG, GC chlamydia, Trichomonas, PTT, INR Imaging Ordered: Ultrasound OB limited, ultrasound abdominal limited Medications Ordered: None necessary Results: Patient's blood work results came back with no acute abnormalities. Diagnosis: Bacterial vaginosis Patient Education/Shared MDM: Results of lab work and imaging shared with patient. She will be treated for bacterial vaginosis. Patient strongly advised to maintain hydration status upon discharge and follow-up with her OBGYN as soon as possible. She will be discharged home with a prescription for intravaginal metronidazole. Strict return precautions provided. Patient verbalized understanding and is in agreement with plan. Vital signs stable at time of discharge. All questions answered. Differential Diagnosis Differential diagnosis: Likely other (Threatened miscarriage, urinary tract infection, STDs, bacterial vaginal) Lab Data Attestation: I reviewed the patient's lab results. 07/28/25 17:52 07/28/25 17:52 Labs: Lab Results 07/28/25 Range/Units 17:52 WBC 9.0 (4.5-10.0) K/mm3 RBC 4.31 (4.2-5.4) M/mm3 Hgb 12.6 (12.0-15.0) g/dL Hct 38.1 (37.0-47.0) % MCV 88.4 (80-100) fl MCH 29.2 (26-34) pg MCHC 33.1 (32-36) g/dl RDW 13.5 (11.5-14.5) % Plt Count 241 (150-375) k/mm3 MPV 9.3 (7.4-10.4) fl Immature Gran % (Auto) 0.7 H (0-0.5) % Neut % (Auto) 69.1 (45.5-73.1) % Lymph % (Auto) 20.4 (18.3-44.2) % [place] % (Auto) 6.7 (2.6-8.5) % Eos % (Auto) 2.9 (0-4.4) % Baso % (Auto) 0.2 (0.2-1.2) % Lymph # (Auto) 1.84 (0.9-3.2) K/mm3 [place] # (Auto) 0.6 (0.1-0.6) K/mm3 Eos # (Auto) 0.3 (0-0.3) K/mm3 Baso # (Auto) 0.0 (0.0-0.1) K/mm3 Abs Immat Gran (auto) 0.06 H (0.00-0.031) K/mm3 Absolute Neuts (auto) 6.2 (1.3-6.7) K/mm3 Absolute Nucleated RBC 0.000 (0.0-0.012) K/mm3 Nucleated RBC % 0.0 (0.0-0.2) % PT 12.7 (11.1-14.7) Seconds INR 0.9 APTT 25.3 (22.3-36.8) Seconds Sodium 135 L (137-145) mmol/L Potassium 3.9 (3.4-5.0) mmol/L Chloride 106 (98-107) mmol/L Carbon Dioxide 20 L (22-30) mmol/L Anion Gap 9 (4-12) mmol/L BUN 8 (7-17) mg/dL Creatinine 0.55 L (0.7-1.0) mg/dL Estim Creat Clear Calc 166 ml/min Estimated GFR > 60 (59 - ) Glucose 102 (65-110) mg/dL Calcium 8.8 (8.4-10.2) mg/dL Total Bilirubin 0.4 (0.2-1.3) mg/dL AST 22 (14-36) U/L ALT 19 (6-35) U/L Alkaline Phosphatase 75 (38-126) U/L Total Protein 7.1 (6.3-8.2) g/dL Albumin 3.8 (3.5-5.1) g/dL Beta HCG, Quant 04835.00 mIU/ML Urine Color Yellow (Yellow) Urine Appearance Cloudy H (Clear) Urine pH 6.5 (5.0-9.0) Ur Specific [place] 1.033 (1.001-1.035) Urine Protein Trace (Negative) mg/dL Urine Glucose (UA) Negative (Negative) mg/dL Urine Ketones Trace H (Negative) mg/dL Ur Blood (Man) Negative (Negative) Urine Nitrate Negative (Negative) Urine Bilirubin Negative (Negative) Urine Urobilinogen 1.0 (<2.0) mg/dL Add Ur Microanalysis Reviewed Leukocyte Esterase Rfl Negative (Negative) MARK/UL Urine RBC 0-2 (0-2) /hpf Urine WBC 0-5 (0-3) /hpf Ur Squamous Epith Cells Many H (Few) /hpf Urine Bacteria 3+ H /hpf Urine Casts 0-2 C. trachomatis (PCR) Not detected (NOT DETECTE) N. gonorrhoeae (PCR) Not detected (NOT DETECTE) T. vaginalis (PCR) Not detected (NOT DETECTE) Blood Type O Positive Antibody Screen Negative Screen Not Reportable Baby's Blood Type Not Reportable Baby's DEBBIE Not Reportable Doses of RhIg Required 0 Imaging Data Attestation: I personally reviewed and interpreted this imaging study as follows: Radiologist's impression: Impressions Abdomen Ultrasound 07/28/25 18:31 IMPRESSION: 1. Normal right upper quadrant ultrasound with decompressed gallbladder. Obstetrics Ultrasound 07/28/25 18:34 IMPRESSION: 1. Single living fetus in vertex presentation with heart rate of 150 bpm. 2. Normal posterior placenta with caudal margin 3.7 cm from the internal cervical os. Discharge Plan Discharge Clinical Impression: Bacterial vaginosis, Bilateral lower abdominal pain Patient Disposition: Home Condition: Stable Instructions: Antibiotic Form, Bacterial Vaginosis (ED) Additional Instructions: Please return to the ER with any worsening symptoms. Follow-up with your OBGYN as soon as possible. Take all medications as prescribed, including regularly scheduled medications. You may take Tylenol as needed for pain control. Please complete your full dose of metronidazole. Patient Language: Pashto Prescriptions: New metronidazole [MetroCream] 0.75 % cream 1 applic topical BID Qty: 45 0RF No Action dicyclomine 20 mg tablet 20 mg PO BID Qty: 30 0RF ondansetron 4 mg tablet,disintegrating 4 mg PO Q8H PRN (Reason: Nausea And Vomiting) Qty: 20 0RF dicyclomine 20 mg tablet 20 mg PO BID Qty: 30 0RF ondansetron 4 mg tablet,disintegrating 4 mg PO Q8H Qty: 30 0RF metronidazole 500 mg tablet 500 mg PO Q12H Qty: 14 0RF acetaminophen 500 mg capsule 500 mg PO Q6H PRN (Reason: pain) Qty: 14 0RF metoclopramide HCl 10 mg tablet 10 mg PO Q6H PRN (Reason: nausea and vomiting) Qty: 14 0RF cephalexin 500 mg capsule 500 mg PO Q6H Qty: 28 0RF Follow-up/Referrals: Gerard,Kamini Abebe MD [Primary Care Provider, Unknown] Stand Alone Forms: Work/School Release IP Time of Disposition: 20:12
[2025-07-28 18:08] LABS: Hematocrit 38.1 % (37.0-47.0); Hemoglobin 12.6 g/dL (12.0-15.0); Immature Granulocyte Percent A 0.7 % (0-0.5); Lymphocytes Absolute Auto 1.84 K/mm3 (0.9-3.2); Mean Corpuscular HGB Conc 33.1 g/dl (32-36); Mean Corpuscular Hemoglobin 29.2 pg (26-34); Mean Corpuscular Volume 88.4 fl (80-100); Nucleated Red Blood Cells Absolute Auto 0.000 K/mm3 (0.0-0.012); Nucleated Red Blood Cells Perc 0.0 % (0.0-0.2); Platelet Count Result 241 k/mm3 (150-375); Red Blood Count 4.31 M/mm3 (4.2-5.4); White Blood Count 9.0 K/mm3 (4.5-10.0)
[2025-07-28 18:13] LABS: Alanine Aminotransferase 19 U/L (6-35); Albumin Level 3.8 g/dL (3.5-5.1); Alkaline Phosphatase 75 U/L (38-126); Anion Gap 9 mmol/L (4-12); Aspartate Amino Transferase 22 U/L (14-36); Bilirubin,Total 0.4 mg/dL (0.2-1.3); Blood Urea Nitrogen 8 mg/dL (7-17); Calcium 8.8 mg/dL (8.4-10.2); Carbon Dioxide 20 mmol/L (22-30); Chloride 106 mmol/L (98-107); Estimated CRCL calculation 166 ml/min; Estimated Glomerular Filt Rate > 60; Glucose 102 mg/dL (65-110); Potassium 3.9 mmol/L (3.4-5.0); Sodium 135 mmol/L (137-145); Total Protein 7.1 g/dL (6.3-8.2)
[2025-07-28 18:15] LABS: Add Urine Microscopic? YES; Appearance Urine Cloudy (Clear); Glucose Urine UA Negative (Negative); Leukocyte Esterase Ur Negative LEU/UL (Negative); Need Manual Microscopic Reviewed; Nitrate Urine Negative (Negative); Non Pathogenic Casts 0-2; Specific Grav Ur 1.033 (1.001-1.035)
[2025-07-28 18:18] LABS: INR 0.9; Prothrombin Time 12.7 Seconds (11.1-14.7)
[2025-07-28 18:19] LABS: Partial Thromboplastin Time 25.3 Seconds (22.3-36.8)
[2025-07-28 18:54] VITALS: BP 102/66; PULSE 93; RESP 18; O2SAT 100
[2025-07-28 18:56] LABS: Beta HCG Quantitative 20225.00 mIU/ML
[2025-07-28 19:10] LABS: Trichomonas Vag PCR NOT DETECTED (NOT DETECTE)
[2025-07-28 20:18] VITALS: BP 115/69; PULSE 76; RESP 18; O2SAT 99
== END 2025-07-28 20:19 | disposition home or self-care (01) ==
PROVIDERS: Emergency Provider Registered Nurse; PCP Obstetrics & Gynecology
DX: O26.892 Other specified pregnancy related conditions, second trimester (principal); R10.32 Left lower quadrant pain; R10.31 Right lower quadrant pain; O23.592 Infection of other part of genital tract in pregnancy, second trimester; Z3A.15 15 weeks gestation of pregnancy
CPT/HCPCS: 36415; 76705; 76815; 80053; 81001; 84702; 85025; 85461; 85610; 85730; 86850; 86900; 86901; 87491; 87591; 87661; 99284